=== PATIENT | female | born 1985 | race Caucasian/White ===

== ENCOUNTER 2017-10-06 23:38 | Emergency (ER) | payer SELFPAY, OTHER ==
[2017-10-07] MEDS: ALPRAZOLAM 0.25 MG TAB PO (00:58)
[2017-10-07] MEDS: ONDANSETRON (ODT) 4 MG TAB ODT (00:58)
== END 2017-10-07 02:47 | disposition home or self-care (01) ==
LOC: E/R 23:38
DX: T40.7X1A Poisoning by cannabis (derivatives), accidental (unintentional), initial encounter (principal)
CPT/HCPCS: 93005; 99283-25